=== PATIENT | male | born 1990 | race Caucasian/White ===

== ENCOUNTER 2016-08-10 16:10 | Emergency (ER) | payer SELFPAY ==
[2016-08-10] MEDS ORDERED: NORMAL SALINE 1000 ML 1,000 ML IV ONE (16:57)
[2016-08-10] MEDS ORDERED: ONDANSETRON 4 MG TAB.RAPDIS PO ONE (16:58)
--- NOTE | 2016-08-10 17:06 | ER Document Report ---
ED Medical Screen (RME) - General Chief Complaint: Nausea/Vomiting Stated Complaint: BODY ACHES Mode of Arrival: Ambulatory Information source: Patient Notes: 26 y/o M presents to ED c/o n/v, generalized body aches, chills, and cough. Reports onset of s/s approximately 1 week but worsening. I have greeted and performed a rapid initial assessment of this patient. A comprehensive ED assessment and evaluation of the patient, analysis of test results and completion of the medical decision making process will be conducted by additional ED providers. TRAVEL OUTSIDE OF THE [place] IN LAST 30 DAYS: No - Related Data Allergies/Adverse Reactions: No Known Allergies Allergy (Unverified 08/10/16 16:57) Past Medical History - Social History Chew tobacco use (# tins/day): No Drug Abuse: None Renal/ Medical History: Denies: Hx Peritoneal Dialysis Physical Exam - Vital signs Vitals: Temp Pulse Resp BP Pulse Ox 98.2 F 73 18 126/87 H 99 08/10/16 16:54 08/10/16 16:54 08/10/16 16:54 08/10/16 16:54 08/10/16 16:54 - General General appearance: Alert In distress: None - Respiratory Respiratory status: No respiratory distress Course - Vital Signs Vital signs: Temp Pulse Resp BP Pulse Ox 98.2 F 73 18 126/87 H 99 08/10/16 16:54 08/10/16 16:54 08/10/16 16:54 08/10/16 16:54 08/10/16 16:54
[2016-08-10 18:52] LABS: ABSOLUTE LYMPHOCYTES (AUTO) 1.6 10^3/uL (0.5-4.7); ABSOLUTE MONOCYTES (AUTO) 0.7 10^3/uL (0.1-1.4); ABSOLUTE NEUT (AUTO) 8.6 10^3/uL (1.7-8.2); BASOPHILS % (AUTO) 0.3 % (0-2); EOSINOPHILS % (AUTO) 0.1 % (0-6); HEMATOCRIT 48.1 % (37.9-51.0); HGB HCT DIFFERENCE 2.9; LYMPHOCYTES % (AUTO) 14.5 % (13-45); MEAN CORPUSCULAR HGB CONC 35.4 g/dL (32.0-36.0); MEAN CORPUSCULAR VOLUME 88 fl (80-97); MONOCYTES % (AUTO) 6.4 % (3-13); RED BLOOD COUNT 5.49 10^6/uL (4.35-5.55); RED CELL DISTRIBUTION WIDTH 13.2 % (11.5-14.0); SEGMENTED NEUTROPHILS % (AUTO) 78.7 % (42-78); WHITE BLOOD COUNT 10.9 10^3/uL (4.0-10.5)
[2016-08-10 19:13] LABS: ALANINE AMINOTRANSFERASE 28 U/L (21-72); ALBUMIN 4.4 g/dL (3.5-5.0); ALKALINE PHOSPHATASE 62 U/L (38-126); ANION GAP 14 (5-19); ASPARTATE AMINO TRANSFERASE 18 U/L (17-59); BILIRUBIN,TOTAL 0.8 mg/dL (0.2-1.3); BLOOD UREA NITROGEN 18 mg/dL (7-20); CALCIUM 10.4 mg/dL (8.4-10.2); CARBON DIOXIDE 30 mmol/L (22-30); CHLORIDE 92 mmol/L (98-107); CREATININE RESULT 1.22 mg/dL (0.52-1.25); GLUCOSE 119 mg/dL (75-110); POTASSIUM 4.1 mmol/L (3.6-5.0); SODIUM 135.6 mmol/L (137-145); TOTAL PROTEIN 7.5 g/dL (6.3-8.2)
[2016-08-10] MEDS ORDERED: NORMAL SALINE 1000 ML 2,000 ML IV ONE (20:40)
[2016-08-10] MEDS ORDERED: ONDANSETRON HCL INJ/PF 4 MG/2 ML SDV IV ONE (20:41)
[2016-08-10] MEDS ORDERED: KETOROLAC TROMETHAMINE INJ/PF 30 MG/1 ML SDV IV ONE (20:41)
--- NOTE | 2016-08-10 20:52 | ER Document Report ---
ED General - General Chief Complaint: Nausea/Vomiting Stated Complaint: BODY ACHES Mode of Arrival: Ambulatory Information source: Patient Notes: Patient reports a one-week history of nausea, vomiting, body aches, chills and abdominal pain. Patient states abdominal pain has migrated in its location. Patient does complain of sore throat. Patient denies any recent sick contacts. Patient states she's vomited 4 times today. Patient denies any diarrhea. TRAVEL OUTSIDE OF THE [place] IN LAST 30 DAYS: No - HPI Onset: Last week Onset/Duration: Persistent Quality of pain: Achy Pain Level: 3 Associated symptoms: Body/muscle aches, Nausea, Vomiting, Sore throat. denies: Nonproductive cough, Productive cough, Diarrhea Exacerbated by: Denies Relieved by: Denies Similar symptoms previously: No Recently seen / treated by doctor: No - Related Data Allergies/Adverse Reactions: Iodinated Contrast Media - Oral and Allergy (Intermediate, Verified 08/10/16 22: 46) Past Medical History - General Information source: Patient - Social History Smoking Status: Former Smoker Chew tobacco use (# tins/day): No Drug Abuse: None Occupation: millwright Lives with: Spouse/Significant other Family History: Reviewed & Not Pertinent Patient has suicidal ideation: No Patient has homicidal ideation: No - Medical History Medical History: Negative Renal/ Medical History: Denies: Hx Peritoneal Dialysis Surgical Hx: Negative Review of Systems - Review of Systems Constitutional: Chills EENT: Throat pain Cardiovascular: No symptoms reported. denies: Chest pain Respiratory: No symptoms reported. denies: Cough, Short of breath Gastrointestinal: Abdominal pain, Nausea, Vomiting, Poor fluid intake. denies: Diarrhea Genitourinary: No symptoms reported. denies: Dysuria, Flank pain, Hematuria Male Genitourinary: No symptoms reported Musculoskeletal: Muscle pain - Generalized body aches Skin: No symptoms reported. denies: Rash Hematologic/Lymphatic: No symptoms reported Neurological/Psychological: Headaches. denies: Lost consciousness Physical Exam - Vital signs Vitals: Temp Pulse Resp BP Pulse Ox 98.2 F 73 18 126/87 H 99 08/10/16 16:54 08/10/16 16:54 08/10/16 16:54 08/10/16 16:54 08/10/16 16:54 - General General appearance: Alert In distress: None Notes: Patient appears to feel bad - HEENT Head: Normocephalic Eyes: Normal Conjunctiva: Normal Nasal: Normal Mouth/Lips: Normal Mucous membranes: Dry Pharynx: Erythema. No: Peritonsillar abscess, Tonsillar hypertrophy Neck: Normal, Supple. No: Lymphadenopathy, Meningismus - Respiratory Respiratory status: No respiratory distress Chest status: Nontender Breath sounds: Normal. No: Rales, Rhonchi, Stridor, Wheezing Chest palpation: Normal - Cardiovascular Rhythm: Regular Heart sounds: S1 appreciated, S2 appreciated Murmur: No - Abdominal Inspection: Normal Distension: No distension Bowel sounds: Normal Tenderness: Tender - Epigastric, suprapubic and mild right lower quadrant tenderness, Guarding - Epigastric area Organomegaly: No organomegaly - Back Back: Normal, Nontender. No: CVA tenderness, Vertebra tenderness - Extremities General upper extremity: Normal inspection, Normal strength General lower extremity: Normal inspection, Normal strength - Neurological Neuro grossly intact: Yes Cognition: Normal Sherman Coma Scale Eye Opening: Spontaneous Sherman Coma Scale Verbal: Oriented Jerome Coma Scale Motor: Obeys Commands Jerome Coma Scale Total: 15 - Psychological Associated symptoms: Normal affect, Normal mood - Skin Skin Temperature: Warm Skin Moisture: Dry Skin Color: Normal Course - Re-evaluation Re-evalutation: 08/10/16 20:[address] Mcghee, Dr Mcghee to that side for examination. Does recommend CT imaging of abdomen. 08/10/16 22:[address] scan. Patient with hives surrounding IV site. Patient states he is now having some chest discomfort and pruritus to bilateral feet. Vital signs stable. Medications ordered for allergic reaction. Patient advised to list CT IV contrast as an allergy in the future. Patient coughing and complains of some mild chest discomfort. 08/10/16 22:24 Patient's vital signs continue stable. No worsening of urticarial symptoms. Patient occasionally coughing. Consulted with Dr. Luis regarding patient presentation. Reviewed CT scan report. Recommends giving Cipro and Flagyl with GI follow-up. Advises not discharging patient yet and continuing to monitor his symptoms. 08/10/16 22:40 Hives decreasing in intensity. Patient no longer coughing. Discussed CT scan report results. Patient advised that he will need to follow-up with the [facility] analyst for further evaluation. Patient states that whenever he was a teenager he had a similar home and did follow up with GI and has had previous colonoscopies in the past. Discussed worsening signs or symptoms that patient should return immediately for. Patient verbalized understanding and agrees with plan of care. 08/10/16 23:01 Patient is allergic reaction symptoms have resolved and he is feeling much improved. Consulted with Dr. Luis regarding patient presentation and agrees with plan for discharge, recommends sending patient home with a prescription for steroids as well as advising him to take Benadryl. - Vital Signs Vital signs: Temp Pulse Resp BP Pulse Ox 98.7 F 53 L 18 149/92 H 100 08/10/16 22:19 08/10/16 22:19 08/10/16 16:54 08/10/16 22:19 08/10/16 22:19 - Laboratory Result Diagrams: 08/10/16 18:17 08/10/16 18:17 Laboratory results interpreted by me: 08/10/16 08/10/16 08/10/16 18:17 18:17 22:11 WBC 10.9 H Seg Neutrophils % 78.7 H Absolute Neutrophils 8.6 H Sodium 135.6 L Chloride 92 L Glucose 119 H Calcium 10.4 H Urine Protein 30 H Urine Ketones 20 H Urine Ascorbic Acid 40 H 08/10/16 22:41 Labs- Entire Visit 08/10/16 08/10/16 08/10/16 18:17 18:17 18:17 WBC 10.9 H RBC 5.49 Hgb 17.0 Hct 48.1 MCV 88 MCH 31.0 MCHC 35.4 RDW 13.2 Plt Count 256 Seg Neutrophils % 78.7 H Lymphocytes % 14.5 Monocytes % 6.4 Eosinophils % 0.1 Basophils % 0.3 Absolute Neutrophils 8.6 H Absolute Lymphocytes 1.6 Absolute Monocytes 0.7 Absolute Eosinophils 0.0 Absolute Basophils 0.0 Sodium 135.6 L Potassium 4.1 Chloride 92 L Carbon Dioxide 30 Anion Gap 14 BUN 18 Creatinine 1.22 Est GFR ( Amer) > 60 Est GFR (Non-Af Amer) > 60 Glucose 119 H Calcium 10.4 H Total Bilirubin 0.8 Direct Bilirubin 0.0 AST 18 ALT 28 Alkaline Phosphatase 62 Total Protein 7.5 Albumin 4.4 Urine Color Urine Appearance Urine pH Ur Specific [place] Urine Protein Urine Glucose (UA) Urine Ketones Urine Blood Urine Nitrite Urine Bilirubin Urine Urobilinogen Ur Leukocyte Esterase Urine WBC (Auto) Urine Mucus (Auto) Urine Ascorbic Acid Influenza A (Rapid) NEGATIVE Influenza B (Rapid) NEGATIVE Group A Strep Rapid 08/10/16 08/10/16 22:11 22:11 WBC RBC Hgb Hct MCV MCH MCHC RDW Plt Count Seg Neutrophils % Lymphocytes % Monocytes % Eosinophils % Basophils % Absolute Neutrophils Absolute Lymphocytes Absolute Monocytes Absolute Eosinophils Absolute Basophils Sodium Potassium Chloride Carbon Dioxide Anion Gap BUN Creatinine Est GFR ( Amer) Est GFR (Non-Af Amer) Glucose Calcium Total Bilirubin Direct Bilirubin AST ALT Alkaline Phosphatase Total Protein Albumin Urine Color YELLOW Urine Appearance CLEAR Urine pH 6.0 Ur Specific [place] 1.056 Urine Protein 30 H Urine Glucose (UA) NEGATIVE Urine Ketones 20 H Urine Blood NEGATIVE Urine Nitrite NEGATIVE Urine Bilirubin NEGATIVE Urine Urobilinogen NEGATIVE Ur Leukocyte Esterase NEGATIVE Urine WBC (Auto) 0 Urine Mucus (Auto) RARE Urine Ascorbic Acid 40 H Influenza A (Rapid) Influenza B (Rapid) Group A Strep Rapid NEGATIVE - Diagnostic Test Radiology reviewed: Reports reviewed Discharge - Discharge Clinical Impression: Colitis Abdominal pain Qualifiers: Abdominal location: unspecified location Qualified Code(s): R10.9 - Unspecified abdominal pain Nausea and vomiting Qualifiers: Vomiting type: unspecified Vomiting Intractability: non-intractable Qualified Code(s): R11.2 - Nausea with vomiting, unspecified Allergic reaction to contrast dye Qualifiers: Encounter type: initial encounter Qualified Code(s): T50.8X5A - Adverse effect of diagnostic agents, initial encounter Condition: Stable Disposition: HOME, SELF-CARE Instructions: Abdominal Pain ([facility]), Acute Allergic Reaction ([facility]), Antinausea Medication ([facility]), Ciprofloxacin ([facility]), Colitis, Nonspecific ([facility]), Intravenous ( IV) Fluids ([facility]), Metronidazole ([facility]), Oral Narcotic Medication ([facility]), Vomiting ([facility]), Steroid Medication, Use of Diphenhydramine Additional Instructions: Return immediately for any new or worsening symptoms Followup with your primary care provider, call tomorrow to make a followup appointment Follow up with a [facility] analyst for further evaluation, call Saturday for a follow-up appointment List IV contrast dye as an allergy in the future Return immediately for any increased pain, fever, blood in stool, persistent vomiting, or any concerning symptoms Prescriptions: Ciprofloxacin HCl [Cipro 500 mg Tablet] 500 mg PO BID #20 tablet Metronidazole [Flagyl 500 mg Tablet] 500 mg PO TID #30 tablet Oxycodone HCl/Acetaminophen [Percocet 5-325 mg Tablet] 1 tab PO ASDIR PRN #15 tablet PRN Reason: Prednisone [Deltasone 20 mg Tablet] 3 tab PO DAILY 4 Days Promethazine HCl [Phenergan 25 mg Tablet] 25 mg PO Q6H PRN #15 tablet PRN Reason: Forms: Return to Work Referrals: [facility] [Provider Group] - Follow up as needed STUART STEWARD MD [ACTIVE STAFF] - Follow up as needed CHUCHO CHUNG MD [ACTIVE STAFF] - Follow up as needed [facility] [Provider Group] - Follow up as needed
[2016-08-10] MEDS ORDERED: DIPHENHYDRAMINE HCL 50 MG/ML VIAL IV ONE (22:03)
[2016-08-10] MEDS ORDERED: FAMOTIDINE INJ/PF 20 MG/2 ML SDV IV ONE (22:03)
[2016-08-10] MEDS ORDERED: METHYLPREDNISOLONE INJ 125 MG/2 ML SDV IV ONE (22:03)
[2016-08-10 22:24] LABS: APPEARANCE,URINE CLEAR; BILIRUBIN,URINE NEGATIVE (NEGATIVE); GLUCOSE, URINE NEGATIVE (NEGATIVE); KETONES,URINE 20 mg/dL (NEGATIVE); LEUKOCYTE ESTERASE,URINE NEGATIVE (NEGATIVE); NITRITE,URINE NEGATIVE (NEGATIVE); PROTEIN,URINE 30 mg/dL (NEGATIVE); URINE SPECIFIC GRAVITY 1.056; UROBILINOGEN,URINE NEGATIVE mg/dL (<2.0)
[2016-08-10] MEDS ORDERED: METRONIDAZOLE 500 MG TABLET PO ONE (22:48)
[2016-08-10] MEDS ORDERED: CIPROFLOXACIN HCL 500 MG TABLET PO ONE (22:48)
[2016-08-10 22:50] VITALS: BP 149/92
== END 2016-08-10 23:17 | disposition home or self-care (01) ==
LOC: ER 16:10
DX: K52.9 Noninfective gastroenteritis and colitis, unspecified (principal); L50.0 Allergic urticaria; R09.89 Other specified symptoms and signs involving the circulatory and respiratory systems; T50.8X5A Adverse effect of diagnostic agents, initial encounter; Y92.238 Other place in hospital as the place of occurrence of the external cause; R11.2 Nausea with vomiting, unspecified; R10.9 Unspecified abdominal pain; M79.1 Myalgia; J02.9 Acute pharyngitis, unspecified; R68.83 Chills (without fever); Z87.891 Personal history of nicotine dependence
CPT/HCPCS: 99284; 96374; 96375; 36415; 87070; 87880; 85025; 87077; 80053; 81001; 87804; 71020; 74177; J1200; S0119; J2930; J1885; J2405; S0028

== ENCOUNTER 2016-09-06 08:46 | Emergency (ER) | payer SELFPAY ==
[2016-09-06 09:18] LABS: ABSOLUTE LYMPHOCYTES (AUTO) 2.4 10^3/uL (0.5-4.7); ABSOLUTE MONOCYTES (AUTO) 0.7 10^3/uL (0.1-1.4); ABSOLUTE NEUT (AUTO) 7.1 10^3/uL (1.7-8.2); BASOPHILS % (AUTO) 0.5 % (0-2); EOSINOPHILS % (AUTO) 0.4 % (0-6); HEMATOCRIT 45.7 % (37.9-51.0); HEMOGLOBIN 15.5 g/dL (13.5-17.0); HGB HCT DIFFERENCE 0.8; LYMPHOCYTES % (AUTO) 23.7 % (13-45); MEAN CORPUSCULAR HEMOGLOBIN 30.4 pg (27.0-33.4); MEAN CORPUSCULAR VOLUME 90 fl (80-97); MONOCYTES % (AUTO) 6.6 % (3-13); RED BLOOD COUNT 5.11 10^6/uL (4.35-5.55); RED CELL DISTRIBUTION WIDTH 13.1 % (11.5-14.0); SEGMENTED NEUTROPHILS % (AUTO) 68.8 % (42-78); WHITE BLOOD COUNT 10.3 10^3/uL (4.0-10.5)
[2016-09-06 09:22] LABS: APPEARANCE,URINE SLIGHTLY-CLOUDY; BILIRUBIN,URINE NEGATIVE (NEGATIVE); GLUCOSE, URINE NEGATIVE (NEGATIVE); KETONES,URINE NEGATIVE (NEGATIVE); LEUKOCYTE ESTERASE,URINE NEGATIVE (NEGATIVE); NITRITE,URINE NEGATIVE (NEGATIVE); PROTEIN,URINE 30 mg/dL (NEGATIVE); URINE SPECIFIC GRAVITY 1.032
[2016-09-06 09:45] LABS: ANION GAP 12 (5-19); BLOOD UREA NITROGEN 11 mg/dL (7-20); CALCIUM 10.7 mg/dL (8.4-10.2); CARBON DIOXIDE 28 mmol/L (22-30); CHLORIDE 101 mmol/L (98-107); CREATININE RESULT 1.11 mg/dL (0.52-1.25); GLUCOSE 115 mg/dL (75-110); SODIUM 140.7 mmol/L (137-145)
--- NOTE | 2016-09-06 10:21 | ER Document Report ---
ED GI/ - General Time seen by provider: 09:45 Mode of Arrival: Ambulatory Information source: Patient TRAVEL OUTSIDE OF THE [place] IN LAST 30 DAYS: No - HPI Patient complains to provider of: Abdominal pain, Diarrhea, Vomiting <CORAZON QUIROGA - Last Filed: 09/06/16 13:30> <NAVDEEPANJANAZHANG - Last Filed: 09/21/16 05:49> - General Chief Complaint: Abdominal Pain Stated Complaint: ABDOMINAL PAIN Notes: Patient is a 26 year old male presenting to the emergency department for abdominal pain. Patient's pain began Saturday. Patient also complains of nausea and vomiting since Saturday. Patient had a normal bowel movement on Saturday and had loose stools since Saturday. Patient has a history of multiple GI problems since he was a child. Patient had endoscopies that showed gastritis as a child. Patient has a history of drinking EtOH heavily but has stopped. Patient is a former smoker. Patient denies any use of NSAIDs but he drinks coffee and soda. Patient is allergic to oral contrast. Patient was evaluated in the ED for these symptoms recently in the last month. Patient states he has a follow up appointment with GI next week for a possible endoscopy. (CORAZON QUIROGA) - Related Data Allergies/Adverse Reactions: Iodinated Contrast Media - Oral and Allergy (Intermediate, Verified 09/12/16 10: 34) Past Medical History - General Information source: Patient - Social History Smoking Status: Former Smoker Chew tobacco use (# tins/day): No Frequency of alcohol use: None Drug Abuse: None Family History: None Patient has suicidal ideation: No Patient has homicidal ideation: No Surgical Hx: Negative - Immunizations Hx Diphtheria, Pertussis, Tetanus Vaccination: Yes <CORAZON QUIROGA - Last Filed: 09/06/16 13:30> Review of Systems - Review of Systems Constitutional: No symptoms reported EENT: No symptoms reported Cardiovascular: No symptoms reported Respiratory: No symptoms reported Gastrointestinal: See HPI Genitourinary: No symptoms reported Male Genitourinary: No symptoms reported Musculoskeletal: No symptoms reported Skin: No symptoms reported Hematologic/Lymphatic: No symptoms reported Neurological/Psychological: No symptoms reported -: Yes All other systems reviewed and negative <CORAZON QUIROGA - Last Filed: 09/06/16 13:30> Physical Exam - Vital signs Interpretation: Normal - General General appearance: Appears well, Alert In distress: Mild - HEENT Head: Normocephalic, Atraumatic Eyes: Normal Pupils: PERRL Mucous membranes: Moist - Respiratory Respiratory status: No respiratory distress Chest status: Nontender Breath sounds: Normal Chest palpation: Normal - Cardiovascular Rhythm: Regular Heart sounds: Normal auscultation Murmur: No - Abdominal Inspection: Normal Distension: No distension Bowel sounds: Normal Tenderness: Tender - mild epigastric tenderness to palpation, McBurney's point. No: Guarding, Rebound, Other - rigidity Organomegaly: No organomegaly - Back Back: Normal, Nontender - Extremities General upper extremity: Normal inspection, Normal ROM, Normal strength General lower extremity: Normal inspection, Normal ROM, Normal strength - Neurological Neuro grossly intact: Yes Cognition: Normal Orientation: AAOx4 Sherman Coma Scale Eye Opening: Spontaneous [place] Coma Scale Verbal: Oriented [place] Coma Scale Motor: Obeys Commands [place] Coma Scale Total: 15 Speech: Normal - Psychological Associated symptoms: Normal affect, Normal mood - Skin Skin Temperature: Warm Skin Moisture: Dry <CORAZON QUIROGA - Last Filed: 09/06/16 13:30> Course - Laboratory Result Diagrams: 09/06/16 09:00 09/06/16 09:00 <CORAZON QUIROGA - Last Filed: 09/06/16 13:30> - Laboratory Result Diagrams: 09/06/16 09:00 09/06/16 09:00 <ZHANG SETHI - Last Filed: 09/21/16 05:49> - Re-evaluation Re-evalutation: 09/06/16 10:24 I personally performed the services described in the documentation, reviewed and edited the documentation which was dictated to my scribe in my presence, and it accurately records my words and actions. Patient presents emergency per with mild epigastric abdominal pain and nausea for the past 3 or 4 days. He was seen and evaluated for the same thing a week or 2 ago does not have a primary care physician but hasn't outpatient follow-up with the GI doctor next week for supposedly on endoscopy. He had multiple problems with the stomach as a child had endoscopies that showed gastritis. He used to drink heavily but denies currently drinking alcohol or history of cirrhosis. He denies any NSAID use but states he does drink coffee and soda. On examination distress afebrile not tachycardic. He has mild epigastric tenderness no associated with guarding rebound rigidity. At this point labs are stable going to give him a GI cocktail and Zofran; Zofran Carafate Prilosec keep follow-up appointment with GI next week given that the clinic for follow- up for primary care and discussed reasons for ed return sooner (ZHANG SETHI) - Vital Signs Vital signs: Temp Pulse Resp BP Pulse Ox 98.6 F 56 L 16 134/66 H 99 09/06/16 10:39 09/06/16 10:39 09/06/16 10:39 09/06/16 10:39 09/06/16 10:39 - Laboratory Laboratory results interpreted by me: 09/06/16 09/06/16 09:00 09:00 Glucose 115 H Calcium 10.7 H Urine Protein 30 H Urine Urobilinogen 2.0 H Discharge <CORAZON QUIROGA - Last Filed: 09/06/16 13:30> <ZHANG SETHI - Last Filed: 09/21/16 05:49> - Discharge Clinical Impression: Abdominal pain Condition: Stable Disposition: HOME, SELF-CARE Instructions: Abdominal Pain ([facility]) Additional Instructions: Abdominal Pain There are many causes of abdominal pain. Pain can mean a serious problem requiring surgery (such as appendicitis). It can also be an innocent problem that goes away on its own (such as a viral infection). Often, time must pass to determine the cause of pain. The physician does not feel that hospitalization is necessary, at present. Things may change within the next 24 hours. Call the doctor or come back for re- examination if any problems occur, such as: (1) Pain that becomes more severe, steady, or becomes concentrated in one specific area. Also, pain that is more severe with movement or coughing. (2) Vomiting that persists or becomes more frequent. (3) Blood in the vomitus, urine, or bowel movements. Blood in the stool may have a tarry or black appearance. (4) Shaking chills or fever greater than 100 degrees F. (5) The abdomen becomes more distended or swollen. (6) Bowel movements cease. (7) Failure to improve as expected. Follow-up with your GI doctor as scheduled next week. Do not drink soda coffee use any aspirin or anti-inflammatory medication no alcohol or smoking. I've given you to stomach medications I also need to call make a follow-up appointment in the next 2-3 days you have a primary care physician at the clinic. Return for increasing worsening or new symptoms Referrals: [facility] [Provider Group] - Follow up tomorrow (Call today for an appointment to be seen in 2-3 days and establish a primary care physician) Scribe Documentation - Scribe Written by Scribe:: Corazon Quiroga 09/06/16 13:30 acting as scribe for :: Navdeep <CORAZON QUIROGA - Last Filed: 09/06/16 13:30>
[2016-09-06] MEDS ORDERED: ONDANSETRON 4 MG TAB.RAPDIS PO ONE (10:23)
[2016-09-06] MEDS ORDERED: MAG HYDROX/AL HYDROX/SIMETH SUSP 30 ML UDCUP PO ONE (10:24)
[2016-09-06] MEDS ORDERED: METOCLOPRAMIDE HCL ORAL SOLN 10 MG/10 ML UDCUP PO ONE (10:24)
[2016-09-06] MEDS ORDERED: LIDOCAINE 2% VISCOUS SOLN 20 ML UDCUP PO ONE (10:24)
[2016-09-06 10:42] VITALS: BP 134/66
== END 2016-09-06 11:01 | disposition home or self-care (01) ==
LOC: ER 08:46
DX: R10.13 Epigastric pain (principal); R11.2 Nausea with vomiting, unspecified; Z87.891 Personal history of nicotine dependence
CPT/HCPCS: 99284; 36415; 85025; 80048; 81001; S0119; J3490

== ENCOUNTER 2016-09-12 09:59 | Day surgery (SDC) | payer SELFPAY ==
[~2016-09-12 09:59] MED LIST: DIPHENHYDRAMINE HCL 50 MG/ML VIAL ONE; NALOXONE HCL INJ/PF 0.4 MG/1 ML SDV ONE; ONDANSETRON HCL INJ/PF 4 MG/2 ML SDV ONE; PROMETHAZINE HCL INJ 25 MG/1 ML VIAL ONE
[2016-09-12] MEDS ORDERED: EPINEPHRINE INJ 1 MG/10 ML DISP.SYRIN ONE (10:00)
[2016-09-12] MEDS ORDERED: FLUMAZENIL INJ 0.5 MG/5 ML VIAL IV ONE (10:00)
[2016-09-12] MEDS ORDERED: FENTANYL CITRATE INJ/PF 100 MCG/2 ML AMPUL ONE (10:00)
[2016-09-12] MEDS ORDERED: GLUCAGON,HUMAN RECOMB 1 MG INJ ONE (10:00)
[2016-09-12] MEDS: MIDAZOLAM 2 MG/2 ML INJ ONE ×3 (10:35→10:40)
[2016-09-12] MEDS ORDERED: PROPOFOL INJ 200 MG/20 ML VIAL IV ONE (11:06)
--- NOTE | 2016-09-12 11:53 | Operative Report ---
Operative Report DATE OF SURGERY: 09/12/16 Operative Report: The risks benefits and alternatives of the procedure explained to the patient in detail and informed consent is obtained that GIF Olympus video scope was inserted into the patient's mouth and hypopharynx the esophagus is identified intubated and insufflated the scope was then advanced through the esophagus stomach and duodenum retroflexion maneuver is done the esophagus stomach and first and second portions of the duodenum examined PREOPERATIVE DIAGNOSIS: Patient was initially attempted at the endoscopy suite. He was given 100 g of fentanyl and 6 mg of Versed but was not able to tolerate the procedure. He had to be taken to the operating room where he was given propofol sedation. At this point he is able to tolerate the procedure. He has nausea vomiting abdominal pain. Rule out peptic ulcer disease. POSTOPERATIVE DIAGNOSIS: Esophageal ulcer, erosive esophagitis. Hiatal hernia. Gastritis OPERATION: EGD with biopsy SURGEON: STUART STEWARD ANESTHESIA: LMAC TISSUE REMOVED OR ALTERED: Gastric mucosal specimens obtained rule out Helicobacter pylori COMPLICATIONS: None. ESTIMATED BLOOD LOSS: none. INTRAOPERATIVE FINDINGS: Erosive esophagitis with ulceration. Hiatal hernia. Gastritis. No gastric ulcers noted PROCEDURE: Patient tolerated procedure well. No immediate postprocedure complications are noted. Patient is discharged in good condition. Discharge date 09/12/2016. Discharge diet: Regular. Discharge activity: Regular. 2-3 week follow-up to discuss findings. If persistent of symptoms need colonoscopy to exclude Crohn's disease. It would have to be done under propofol sedation. We'll await on biopsies. Patient is instructed to call the office or proceed to the emergency room should there be any further problems or questions.
[2016-09-12 13:24] VITALS: BP 117/65
== END 2016-09-12 13:35 | disposition home or self-care (01) ==
LOC: END 09:59
PROVIDERS: ATTEND Internal Medicine Gastroenterology
PROC: 0DB68ZX Excision of Stomach, Via Natural or Artificial Opening Endoscopic, Diagnostic (ICD-10-PCS; principal; 2016-09-12 10:00)
DX: K22.10 Ulcer of esophagus without bleeding (principal); K29.70 Gastritis, unspecified, without bleeding; K44.9 Diaphragmatic hernia without obstruction or gangrene
CPT/HCPCS: 43239; 88305 ×2; J2250; J3010; J2405; J2704; 740; J0171; J1200; J1610; J2310; J2550; J3490

== ENCOUNTER 2016-11-15 08:06 | Emergency (ER) | payer MEDICAID ==
[2016-11-15] MEDS ORDERED: ONDANSETRON HCL INJ/PF 4 MG/2 ML SDV IV ONE (08:19)
[2016-11-15 09:02] LABS: ABSOLUTE BASOPHILS # (AUTO) 0.1 10^3/uL (0.0-0.2); ABSOLUTE EOSINOPHILS # (AUTO) 0.1 10^3/uL (0.0-0.6); ABSOLUTE LYMPHOCYTES (AUTO) 1.9 10^3/uL (0.5-4.7); ABSOLUTE MONOCYTES (AUTO) 0.8 10^3/uL (0.1-1.4); ABSOLUTE NEUT (AUTO) 5.8 10^3/uL (1.7-8.2); BASOPHILS % (AUTO) 0.6 % (0-2); EOSINOPHILS % (AUTO) 1.2 % (0-6); HEMATOCRIT 47.5 % (37.9-51.0); HEMOGLOBIN 16.4 g/dL (13.5-17.0); HGB HCT DIFFERENCE 1.7; LYMPHOCYTES % (AUTO) 22.1 % (13-45); MEAN CORPUSCULAR HEMOGLOBIN 30.5 pg (27.0-33.4); MEAN CORPUSCULAR HGB CONC 34.5 g/dL (32.0-36.0); MEAN CORPUSCULAR VOLUME 89 fl (80-97); MONOCYTES % (AUTO) 9.5 % (3-13); RED BLOOD COUNT 5.37 10^6/uL (4.35-5.55); RED CELL DISTRIBUTION WIDTH 12.5 % (11.5-14.0); SEGMENTED NEUTROPHILS % (AUTO) 66.6 % (42-78); WHITE BLOOD COUNT 8.7 10^3/uL (4.0-10.5)
[2016-11-15 09:26] LABS: ALANINE AMINOTRANSFERASE 36 U/L (21-72); ALBUMIN 4.8 g/dL (3.5-5.0); ALKALINE PHOSPHATASE 61 U/L (38-126); ANION GAP 14 (5-19); ASPARTATE AMINO TRANSFERASE 28 U/L (17-59); BILIRUBIN,DIRECT 0.5 mg/dL (0.0-0.4); BILIRUBIN,TOTAL 1.3 mg/dL (0.2-1.3); BLOOD UREA NITROGEN 20 mg/dL (7-20); CALCIUM 10.4 mg/dL (8.4-10.2); CARBON DIOXIDE 27 mmol/L (22-30); CHLORIDE 94 mmol/L (98-107); CREATININE RESULT 1.03 mg/dL (0.52-1.25); GLUCOSE 101 mg/dL (75-110); LIPASE 43.1 U/L (23-300); POTASSIUM 3.6 mmol/L (3.6-5.0); TOTAL PROTEIN 8.2 g/dL (6.3-8.2)
[2016-11-15 10:24] LABS: AMORPHOUS SEDIMENT,URINE TRACE /HPF; APPEARANCE,URINE SLIGHTLY-CLOUDY; BILIRUBIN,URINE NEGATIVE (NEGATIVE); GLUCOSE, URINE NEGATIVE (NEGATIVE); KETONES,URINE 20 mg/dL (NEGATIVE); LEUKOCYTE ESTERASE,URINE NEGATIVE (NEGATIVE); NITRITE,URINE NEGATIVE (NEGATIVE); PROTEIN,URINE 30 mg/dL (NEGATIVE); URINE SPECIFIC GRAVITY 1.031
[2016-11-15] MEDS ORDERED: MAG HYDROX/AL HYDROX/SIMETH SUSP 30 ML UDCUP PO ONE (11:10)
[2016-11-15] MEDS ORDERED: LIDOCAINE 2% VISCOUS SOLN 20 ML UDCUP PO ONE (11:10)
[2016-11-15] MEDS ORDERED: METOCLOPRAMIDE HCL ORAL SOLN 10 MG/10 ML UDCUP PO ONE (11:10)
[2016-11-15] MEDS ORDERED: METOCLOPRAMIDE HCL INJ/PF 10 MG/2 ML SDV IV ONE (12:00)
[2016-11-15] MEDS ORDERED: NORMAL SALINE 1000 ML 1,000 ML IV ONE (12:00)
[2016-11-15] MEDS ORDERED: MORPHINE SULFATE 10 MG/ML INJ IV ONE (12:00)
--- NOTE | 2016-11-15 12:50 | ER Document Report ---
ED General - General Chief Complaint: Abdominal Pain Stated Complaint: ABDOMINAL PAIN,NAUSEA Time Seen by Provider: 11/15/16 08:18 Mode of Arrival: Ambulatory Information source: Patient Notes: 26-year-old male history of gastric ulceration presents with epigastric abdominal pain. Patient denies any fevers or chills admits to nausea and vomiting. Patient notes he had an EGD performed 2 months ago and was placed on Nexium. TRAVEL OUTSIDE OF THE [place] IN LAST 30 DAYS: No - HPI Onset: Other Onset/Duration: Persistent Quality of pain: Burning Severity: Mild Pain Level: 1 Associated symptoms: Nausea, Vomiting Exacerbated by: Food Relieved by: Denies Similar symptoms previously: Yes Recently seen / treated by doctor: Yes - Related Data Allergies/Adverse Reactions: Iodinated Contrast Media - Oral and Allergy (Intermediate, Verified 09/12/16 10: 34) Past Medical History - Social History Smoking Status: Never Smoker Cigarette use (# per day): No Chew tobacco use (# tins/day): No Smoking Education Provided: No Frequency of alcohol use: Occasional Drug Abuse: Marijuana Family History: None Patient has suicidal ideation: No Patient has homicidal ideation: No - Past Medical History Cardiac Medical History: Denies: Hx Coronary Artery Disease, Hx Heart Attack, Hx Hypertension Pulmonary Medical History: Reports: Hx Asthma - CHILD Denies: Hx Bronchitis, Hx COPD, Hx Pneumonia Neurological Medical History: Denies: Hx Cerebrovascular Accident, Hx Seizures Renal/ Medical History: Denies: Hx Peritoneal Dialysis Musculoskeltal Medical History: Denies Hx Arthritis - Immunizations Hx Diphtheria, Pertussis, Tetanus Vaccination: Yes Review of Systems - Review of Systems Notes: PHYSICAL EXAMINATION: GENERAL: Well-appearing, well-nourished and in no acute distress. HEAD: Atraumatic, normocephalic. EYES: Pupils equal round and reactive to light, extraocular movements intact, sclera anicteric, conjunctiva are normal. ENT: Nares patent, oropharynx clear without exudates. Moist mucous membranes. NECK: Normal range of motion, supple without lymphadenopathy LUNGS: Breath sounds clear to auscultation bilaterally and equal. No wheezes rales or rhonchi. HEART: Regular rate and rhythm without murmurs ABDOMEN: Soft, tender in the epigastric region without any rebound or guarding Musculoskeletal: Normal range of motion, no pitting or edema. No cyanosis. NEUROLOGICAL: Cranial nerves grossly intact. Normal speech, normal gait. Normal sensory, motor exams PSYCH: Normal mood, normal affect. SKIN: Warm, Dry, normal turgor, no rashes or lesions noted. Physical Exam - Vital signs Vitals: Temp Pulse Resp BP Pulse Ox 98.3 F 65 20 139/85 H 100 11/15/16 08:09 11/15/16 08:09 11/15/16 08:09 11/15/16 08:09 11/15/16 08:09 Course - Re-evaluation Re-evalutation: 11/15/16 16:24 Patient on physical examination is tender in the epigastric region, my initial impression was a gastric ulcer. Patient was given nausea control IV fluids GI cocktail which resolved his symptoms. Patient was given for the nausea control and states he feels much better. Labs notes no significant abnormality. I believe patient is stable for discharge. After performing a Medical Screening Examination, I estimate there is LOW risk for ACUTE APPENDICITIS, BOWEL OBSTRUCTION, ACUTE CHOLECYSTITIS, PERFORATED DIVERTICULITIS, INCARCERATED HERNIA, PANCREATITIS, or PERFORATED ULCER, thus I consider the discharge disposition reasonable. Also, there is no evidence or peritonitis, sepsis, or toxicity. I have reevaluated this patient multiple times and no significant life threatening changes are noted. The patient and I have discussed the diagnosis and risks, and we agree with discharging home with close follow-up with the understanding that symptoms and presentations can change. We also discussed returning to the Emergency Department immediately if new or worsening symptoms occur. We have discussed the symptoms which are most concerning (e.g., bloody stool, fever, changing or worsening pain, intractable vomiting - standard verbal up date) that necessitate immediate return. - Vital Signs Vital signs: Temp Pulse Resp BP Pulse Ox 98.6 F 59 L 17 122/65 97 11/15/16 12:55 11/15/16 12:55 11/15/16 12:55 11/15/16 12:55 11/15/16 12:55 - Laboratory Result Diagrams: 11/15/16 08:34 11/15/16 08:34 Laboratory results interpreted by me: 11/15/16 11/15/16 08:34 09:55 Sodium 135.0 L Chloride 94 L Calcium 10.4 H Direct Bilirubin 0.5 H Urine Protein 30 H Urine Ketones 20 H Urine Urobilinogen 2.0 H Discharge - Discharge Clinical Impression: Nausea & vomiting Qualifiers: Vomiting type: unspecified Vomiting Intractability: non-intractable Qualified Code(s): R11.2 - Nausea with vomiting, unspecified Abdominal pain Qualifiers: Abdominal location: epigastric Qualified Code(s): R10.13 - Epigastric pain Condition: Stable Disposition: HOME, SELF-CARE Instructions: Abdominal Pain ([facility]) Prescriptions: Famotidine [Pepcid 20 mg Tablet] 20 mg PO DAILY #30 tablet Hydrocodone/Acetaminophen [Tabiona 5-325 mg Tablet] 1 tab PO Q6 #14 tablet Metoclopramide HCl [Reglan] 10 mg PO Q8 #20 tablet Referrals: STUART STEWARD MD [ACTIVE STAFF] - Follow up tomorrow
[2016-11-15 13:14] VITALS: BP 122/65
== END 2016-11-15 12:55 | disposition home or self-care (01) ==
LOC: ER 08:06
DX: K25.9 Gastric ulcer, unspecified as acute or chronic, without hemorrhage or perforation (principal); R10.13 Epigastric pain; R11.2 Nausea with vomiting, unspecified; Z79.899 Other long term (current) drug therapy; Z91.041 Radiographic dye allergy status
CPT/HCPCS: 99284; 96374; 96375; 36415; 83690; 85025; 80053; 81001; J3490 ×3; J2765; J2270; J2405

== ENCOUNTER 2019-11-17 18:15 | Emergency (ER) | payer SELFPAY ==
[2019-11-17] MEDS ORDERED: DIPH/PERTUSS(ACELL)/TETANUS VAC/PF 0.5 ML SYR (>=10YO) IM ONE (18:19)
[2019-11-17] MEDS ORDERED: HYDROCODONE/ACETAMINOPHEN 5-325 MG TABLET PO ONE (18:19)
[2019-11-17 18:20] VITALS: BP 150/95
--- NOTE | 2019-11-17 18:22 | ER Document Report ---
ED Medical Screen (RME) - General Chief Complaint: Laceration Stated Complaint: FINGER LACERATION Time Seen by Provider: 11/17/19 18:19 Mode of Arrival: Ambulatory Information source: Patient Notes: 29-year-old male presented to ED for laceration to the right index finger about 2 hours ago. He states he took 250 mg of Aleve about an hour ago. He states he does not know when his last tetanus shot was. He states he cut his finger on the lawnmower. He is alert oriented respirations regular nonlabored speaking in full sentences walks with even steady gait. He states he does not have any past medical history. I have greeted and performed a rapid initial assessment of this patient. A comprehensive ED assessment and evaluation of the patient, analysis of test results and completion of medical decision making process will be conducted by an additional ED providers. TRAVEL OUTSIDE OF THE [place] IN LAST 30 DAYS: No - Related Data Allergies/Adverse Reactions: Iodinated Contrast Media Allergy (Intermediate, Verified 11/17/19 18:18) Past Medical History - Past Medical History Cardiac Medical History: Denies: Hx Coronary Artery Disease, Hx Heart Attack, Hx Hypertension Pulmonary Medical History: Reports: Hx Asthma - CHILD Denies: Hx Bronchitis, Hx COPD, Hx Pneumonia Neurological Medical History: Denies: Hx Cerebrovascular Accident, Hx Seizures Renal/ Medical History: Denies: Hx Peritoneal Dialysis Musculoskeltal Medical History: Denies Hx Arthritis - Immunizations Hx Diphtheria, Pertussis, Tetanus Vaccination: Yes Physical Exam - Vital signs Vitals: Temp Pulse Resp BP Pulse Ox 98.7 F 79 16 150/95 H 97 11/17/19 18:19 11/17/19 18:19 11/17/19 18:19 11/17/19 18:19 11/17/19 18:19 Course - Vital Signs Vital signs: Temp Pulse Resp BP Pulse Ox 98.7 F 79 16 150/95 H 97 11/17/19 18:19 11/17/19 18:19 11/17/19 18:19 11/17/19 18:19 11/17/19 18:19
--- NOTE | 2019-11-17 19:06 | RADIOLOGY REPORT (SQ) ---
EXAM DESCRIPTION: FINGER RIGHT IMAGES COMPLETED DATE/TIME: 11/17/2019 5:36 pm REASON FOR STUDY: index finger laceration on mower COMPARISON: None. NUMBER OF VIEWS: Three views. TECHNIQUE: AP, lateral, and oblique images acquired of the right 2nd finger LIMITATIONS: None. FINDINGS: MINERALIZATION: Normal. BONES: There is an acute comminuted fracture of the distal tuft of the distal phalanx 2nd digit. No involvement of the articular surface. SOFT TISSUES: Laceration and soft tissue swelling. No definite radiopaque foreign body. OTHER: No other significant finding. IMPRESSION: Acute comminuted fracture distal tuft of the distal phalanx 2nd digit. Overlying lacera tion. No subcutaneous foreign body. COMMENT: SITE OF TRAUMA/COMPLAINT MARKED/STAMP COMPLETED: YES. TECHNICAL DOCUMENTATION: JOB ID: [id number] 2010 [employer]- All Rights Reserved Reading location - IP/workstation name: [email or web address]
[2019-11-17] MEDS ORDERED: LIDOCAINE 1% INJ-PF (10 MG/ML) 30 ML SDV ONE (19:25)
[2019-11-17] MEDS ORDERED: LIDOCAINE 1% INJ-PF (10 MG/ML) 30 ML SDV INJ ONE (19:31)
--- NOTE | 2019-11-17 19:58 | ER Document Report ---
ED Hand/Wrist Injury - General Chief Complaint: Laceration Stated Complaint: FINGER LACERATION Time Seen by Provider: 11/17/19 18:19 Mode of Arrival: Ambulatory Information source: Patient Notes: 29-year-old male presented to ED for complaint of laceration to the right index finger this afternoon. He states he took about 250 mg of Aleve about an hour after he injured his hand. He did receive a tetanus shot when he came in. He had a laceration due to trying to remove a lawnmower blade with a hammer. He is alert oriented respirations regular and unlabored speaking in full sentences. W e have x-rayed the finger. He does have a comminuted fracture to the distal tuft of the second digit. He also has a laceration through the nail with part of the nailbed on top of the nail. He did have subungual hematomas to the second and third digit. These have been corrected with a cautery tool. TRAVEL OUTSIDE OF THE [place] IN LAST 30 DAYS: No - HPI Injury to: Middle finger, Ring finger Onset: This afternoon Where: Home, Outdoors Timing: Better Quality of pain: Achy, Throbbing Severity: Moderate Pain Level: 3 Context: Blow - Related Data Allergies/Adverse Reactions: Iodinated Contrast Media Allergy (Intermediate, Verified 11/17/19 18:18) Home Medications: OTC reflux Past Medical History - General Information source: Patient - Social History Smoking Status: Former Smoker Chew tobacco use (# tins/day): No Frequency of alcohol use: Social Drug Abuse: None Family History: None Patient has homicidal ideation: No - Past Medical History Cardiac Medical History: Reports: None Pulmonary Medical History: Reports: Hx Asthma - CHILD EENT Medical History: Reports: None Neurological Medical History: Reports: None Endocrine Medical History: Reports: None Renal/ Medical History: Reports: None Malignancy Medical History: Reports None GI Medical History: Reports: None Musculoskeletal Medical History: Reports None Skin Medical History: Reports None Psychiatric Medical History: Reports: None Traumatic Medical History: Reports: None Infectious Medical History: Reports: None Surgical Hx: Negative Past Surgical History: Reports: None - Immunizations Hx Diphtheria, Pertussis, Tetanus Vaccination: Yes Review of Systems - Review of Systems Constitutional: No symptoms reported EENT: No symptoms reported Cardiovascular: No symptoms reported Respiratory: No symptoms reported Gastrointestinal: No symptoms reported Genitourinary: No symptoms reported Male Genitourinary: No symptoms reported Musculoskeletal: Other - Subungual hematoma to the second and third fingernail right hand, comminuted fracture to the distal tuft of the second finger laceration through the fingernail. Skin: No symptoms reported Hematologic/Lymphatic: No symptoms reported Neurological/Psychological: No symptoms reported Physical Exam - Vital signs Vitals: Temp Pulse Resp BP Pulse Ox 98.7 F 79 16 150/95 H 97 11/17/19 18:19 11/17/19 18:19 11/17/19 18:19 11/17/19 18:19 11/17/19 18:19 Interpretation: Normal - General General appearance: Appears well, Alert - HEENT Head: Normocephalic, Atraumatic Eyes: Normal Pupils: PERRL - Respiratory Respiratory status: No respiratory distress Chest status: Nontender Breath sounds: Normal Chest palpation: Normal - Cardiovascular Rhythm: Regular Heart sounds: Normal auscultation Murmur: No - Abdominal Inspection: Normal Distension: No distension Bowel sounds: Normal Tenderness: Nontender Organomegaly: No organomegaly - Back Back: Normal, Nontender - Extremities General upper extremity: Normal temperature General lower extremity: Normal inspection, Nontender, Normal color, Normal ROM, Normal temperature, Normal weight bearing. No: Marleni's sign Hand: Tender, Ecchymosis, Nail injury - Subungual hematoma to the second and third finger part of the nail is out from under the skin on the second finger, Swelling. No: Abrasion, Deformity, Dislocation, No evidence of human bite, No evidence of FB - Neurological Neuro grossly intact: Yes Cognition: Normal Orientation: AAOx4 [place] Coma Scale Eye Opening: Spontaneous [place] Coma Scale Verbal: Oriented [place] Coma Scale Motor: Obeys Commands [place] Coma Scale Total: 15 Speech: Normal Motor strength normal: LUE, RUE, LLE, RLE Sensory: Normal - Psychological Associated symptoms: Normal affect, Normal mood - Skin Skin Temperature: Warm Skin Moisture: Dry Skin Color: Normal Course - Re-evaluation Re-evalutation: 11/17/19 20:04 Digital block completed on the second finger right hand with 1% lidocaine and 6 cc of lidocaine. The finger was cleaned well with surgical scrub at the base of the finger and then digital block both sides. After this the distal finger was cleaned well with surgical scrub and then the nail was replaced underneath of the skin with pickups. The nail was secured with benzoin and Steri-Strips to ensure it did not come out from the skin. The finger was then splinted with a finger splint. The third finger nail was cleaned well with Betadine and trephination was completed to release the subungual hematoma. Patient was given instructions on care for these 2 fingers and need to follow-up with orthopedics for his tuft fracture. He was also started on Augmentin due to the dirty nature of the wound. Patient was instructed please to follow-up with the emergency room for any signs or symptoms of infection or swelling. - Vital Signs Vital signs: Temp Pulse Resp BP Pulse Ox 98.7 F 79 16 150/95 H 97 11/17/19 18:19 11/17/19 18:19 11/17/19 18:19 11/17/19 18:19 11/17/19 18:19 - Diagnostic Test Radiology reviewed: Image reviewed, Reports reviewed Procedures - Immobilization Right Finger 2nd digit Time completed: 20:01 Pre-Proc Neuro Vasc Exam: Normal Immobilizer type: Finger protection Performed by: PCT Post-Proc Neuro Vasc Exam: Normal Alignment checked and good: Yes - Nail Trephanation/Removal Right Hand 2nd digit Time completed: 20:03 Nail Trepanation/Removal Location: Trepanation Betadine prep applied: Yes Method of Drainage: Nail cauterized Sterile Dressing Applied: Yes Finger Splint: Yes Discharge - Discharge Clinical Impression: Open Tuft fracture 2nd digit right hand, Subungual hematoma 3rd finger right hand Condition: Stable Disposition: HOME, SELF-CARE Additional Instructions: Tuft Fracture of the Finger The tip of your finger is broken (beneath the finger nail). While painful, this type of fracture is not serious. You can expect the bone to heal within three to four weeks. Elevating and ice packing the finger will help greatly in reducing pain and swelling. You will probably need a protective splint, initially. When you can push firmly on the tip of your finger without any pain, you no longer need to use the splint. If the fingernail becomes black and painful, bleeding has occurred under the nail. This may need to be drained. Sometimes the nail must be removed. Occasionally, the tissue under the nail must be sewn back together. Call the doctor or return for examination if pain becomes severe, or if numbness or severe discoloration occurs. Subungual Hematoma You have a collection of blood between the nail bed and nail, called a subungual hematoma. This injury is often very painful due to the pressure that builds up under the nail. The pressure is relieved by draining blood from beneath the nail, either by creating some small holes in it, or by the nail from the skin. This will usually stop the pain. Sometimes the nail must be removed completely to examine the nail bed for injury. You should elevate the injured digit as much as possible for the next two days. Usually the injured nail will separate from its bed over the next few weeks. A new nail will grow over the exposed nail bed. This may take two or three months. If swelling around the cuticle, redness, fever, or increasing pain occur, you should call the doctor immediately. Care of Steri-Strip Closure Your cut has been closed up with a special surgical tape. For this type of cut, it can replace stitches. You must protect the wound just as you would with stitches, however. For the first few days, keep the wound area completely dry. This also means you should avoid activity which makes you sweat. Do not move the area if motion stretches or wrinkles the strips. Don't allow the area to be bumped -- if bleeding occurs, the blood can make the strips loosen. The strips are somewhat waterproof. After a few days, the physician may allow you to shower. Be sure to ask if it's OK. Do not remove the tape until it peels off by itself. At that time, the wound should be healed. Augmentin Augmentin is a mixture of amoxicillin and clavulanate. Amoxicillin is a member of the penicillin family. It covers the germs likely to cause ear, bronchial, and urinary infections better than plain penicillin. The addition of clavulanate allows it to cover staph infections of the skin, as well as resistant cases of ear and sinus infections. Your physician has chosen Augmentin for you because of the special nature of your situation. Augmentin is best taken with meals. Nausea after taking the medication is rare, but can occur. Diarrhea can occur, particularly in small children. Vaginal yeast infections, and oral thrush in infants are also common. Contact your physician if these problems occur. Allergy to penicillins is common. If you have had an allergic reaction to any drug of the penicillin family, you should never take any other penicillin. Notify your doctor at once if you develop hives, shortness of breath, swelling, or faintness. FOLLOW-UP CARE: If you have been referred to a physician for follow-up care, call the physicians office for an appointment as you were instructed or within the next two days. If you experience worsening or a significant change in your symptoms, notify the physician immediately or return to the Emergency Department at any time for re-evaluation. Prescriptions: Amoxicillin/Potassium Clav [Augmentin 875-125 Tablet] 1 tab PO BID #20 tab Forms: Elevated Blood Pressure, Return to Work Referrals: [facility] [Provider Group] - Follow up as needed
[2019-11-17] MEDS ORDERED: AMOXICILLIN TR/POT CLAVULANATE 875-125 MG TAB PO ONE (19:59)
== END 2019-11-17 19:53 | disposition home or self-care (01) ==
LOC: ER 18:15
PROC: 0HBQXZZ Excision of Finger Nail, External Approach (ICD-10-PCS; principal; 2019-11-17)
DX: S62.600B Fracture of unspecified phalanx of right index finger, initial encounter for open fracture (principal); S60.031A Contusion of right middle finger without damage to nail, initial encounter; W45.8XXA Other foreign body or object entering through skin, initial encounter; W22.8XXA Striking against or struck by other objects, initial encounter; Z87.891 Personal history of nicotine dependence; J45.909 Unspecified asthma, uncomplicated
CPT/HCPCS: 99283; 90471; 73140; 90715; 11765; J3490 ×2